=== PATIENT | female | born 1935 | race Caucasian/White ===

== ENCOUNTER → 2017-05-14 07:40 | Outpatient (CLI) | payer OTHER | END | disposition home or self-care (01) | LOC: LAB 07:40 | DX: E11.21 Type 2 diabetes mellitus with diabetic nephropathy (principal); I13.10 Hypertensive heart and chronic kidney disease without heart failure, with stage 1 through stage 4 chronic kidney disease, or unspecified chronic kidney disease ==

== ENCOUNTER → 2017-05-14 07:44 | Outpatient (CLI) | payer OTHER | END | disposition home or self-care (01) | LOC: RAD 07:44 | DX: I13.10 Hypertensive heart and chronic kidney disease without heart failure, with stage 1 through stage 4 chronic kidney disease, or unspecified chronic kidney disease (principal) ==

== ENCOUNTER 2017-05-15 07:18 | Outpatient (CLI) | payer OTHER | END 2017-05-15 08:05 | disposition home or self-care (01) | LOC: LAB 07:18 | DX: E11.21 Type 2 diabetes mellitus with diabetic nephropathy (principal); I13.10 Hypertensive heart and chronic kidney disease without heart failure, with stage 1 through stage 4 chronic kidney disease, or unspecified chronic kidney disease ==

== ENCOUNTER 2017-09-24 07:42 | Outpatient (CLI) | payer OTHER | END 2017-09-24 08:28 | disposition home or self-care (01) | LOC: LAB 07:42 → RAD 07:42 → LAB 08:28 | DX: R42 Dizziness and giddiness (principal); I13.10 Hypertensive heart and chronic kidney disease without heart failure, with stage 1 through stage 4 chronic kidney disease, or unspecified chronic kidney disease; E11.21 Type 2 diabetes mellitus with diabetic nephropathy; I73.89 Other specified peripheral vascular diseases; M40.03 Postural kyphosis, cervicothoracic region; M43.12 Spondylolisthesis, cervical region; H90.5 Unspecified sensorineural hearing loss; M81.0 Age-related osteoporosis without current pathological fracture; I87.2 Venous insufficiency (chronic) (peripheral); E11.69 Type 2 diabetes mellitus with other specified complication; I12.9 Hypertensive chronic kidney disease with stage 1 through stage 4 chronic kidney disease, or unspecified chronic kidney disease; K92.1 Melena; E78.4 Other hyperlipidemia; E55.9 Vitamin D deficiency, unspecified ==

== ENCOUNTER 2017-12-03 07:53 | Outpatient (CLI) | payer OTHER | END 2017-12-03 07:57 | disposition home or self-care (01) | LOC: RAD 07:53 | DX: M79.662 Pain in left lower leg (principal) ==

== ENCOUNTER 2018-03-22 08:10 | Outpatient (CLI) | payer OTHER | END 2018-03-22 08:21 | disposition home or self-care (01) | LOC: LAB 08:10 | DX: I13.10 Hypertensive heart and chronic kidney disease without heart failure, with stage 1 through stage 4 chronic kidney disease, or unspecified chronic kidney disease (principal); E11.21 Type 2 diabetes mellitus with diabetic nephropathy; E11.69 Type 2 diabetes mellitus with other specified complication; I12.9 Hypertensive chronic kidney disease with stage 1 through stage 4 chronic kidney disease, or unspecified chronic kidney disease; Z13.29 Encounter for screening for other suspected endocrine disorder; Z12.11 Encounter for screening for malignant neoplasm of colon; M54.40 Lumbago with sciatica, unspecified side ==

== ENCOUNTER 2018-03-27 07:53 | Outpatient (CLI) | payer OTHER | END 2018-03-27 08:00 | disposition home or self-care (01) | LOC: LAB 07:53 | DX: I13.10 Hypertensive heart and chronic kidney disease without heart failure, with stage 1 through stage 4 chronic kidney disease, or unspecified chronic kidney disease (principal); E11.21 Type 2 diabetes mellitus with diabetic nephropathy; E11.69 Type 2 diabetes mellitus with other specified complication; I12.9 Hypertensive chronic kidney disease with stage 1 through stage 4 chronic kidney disease, or unspecified chronic kidney disease; Z13.29 Encounter for screening for other suspected endocrine disorder; Z12.11 Encounter for screening for malignant neoplasm of colon ==

== ENCOUNTER 2018-09-24 07:18 | Outpatient (CLI) | payer OTHER | END 2018-09-24 07:29 | disposition home or self-care (01) | LOC: LAB 07:18 | DX: I13.10 Hypertensive heart and chronic kidney disease without heart failure, with stage 1 through stage 4 chronic kidney disease, or unspecified chronic kidney disease (principal); E11.21 Type 2 diabetes mellitus with diabetic nephropathy; I70.0 Atherosclerosis of aorta ==

== ENCOUNTER 2019-03-21 07:57 | Outpatient (CLI) | payer OTHER | END 2019-03-21 08:03 | disposition home or self-care (01) | LOC: LAB 07:57 | DX: E11.21 Type 2 diabetes mellitus with diabetic nephropathy (principal); I13.10 Hypertensive heart and chronic kidney disease without heart failure, with stage 1 through stage 4 chronic kidney disease, or unspecified chronic kidney disease; E78.49 Other hyperlipidemia; Z13.228 Encounter for screening for other metabolic disorders; E03.8 Other specified hypothyroidism; Z13.29 Encounter for screening for other suspected endocrine disorder; E55.9 Vitamin D deficiency, unspecified ==

== ENCOUNTER 2019-11-28 07:11 | Outpatient (CLI) | payer OTHER | END 2019-11-28 07:19 | disposition home or self-care (01) | LOC: LAB 07:11 | PROVIDERS: ATTEND Internal Medicine | DX: E03.8 Other specified hypothyroidism (principal); E11.21 Type 2 diabetes mellitus with diabetic nephropathy; I13.10 Hypertensive heart and chronic kidney disease without heart failure, with stage 1 through stage 4 chronic kidney disease, or unspecified chronic kidney disease; E78.49 Other hyperlipidemia; D50.0 Iron deficiency anemia secondary to blood loss (chronic); I70.0 Atherosclerosis of aorta; E55.9 Vitamin D deficiency, unspecified; E05.90 Thyrotoxicosis, unspecified without thyrotoxic crisis or storm ==

== ENCOUNTER 2020-05-26 07:43 | Outpatient (CLI) | payer OTHER | END 2020-05-26 07:45 | disposition home or self-care (01) | LOC: LAB 07:43 | DX: E11.9 Type 2 diabetes mellitus without complications (principal); E11.21 Type 2 diabetes mellitus with diabetic nephropathy; E11.69 Type 2 diabetes mellitus with other specified complication ==